=== PATIENT | male | born 1985 | race Two or more races ===

== ENCOUNTER 2016-09-28 20:49 | Emergency (ER) | payer OTHER ==
[~2016-09-28] VITALS: Ht 170.2 cm; Wt 80.7 kg
[2016-09-28] MEDS ORDERED: DIPH,PERTUSS(ACELL),TET VAC/PF 0.5 ML IM-VACC ONE ×2 (21:25→21:30)
[2016-09-28] MEDS ORDERED: CEFTRIAXONE PMX 1GM/50ML 50 ML ONE (21:26)
[2016-09-28] MEDS ORDERED: SODIUM CHLORIDE 0.9% 1,000ML IVBOLUS ONE (21:30)
[2016-09-28] MEDS ORDERED: SODIUM CHLORIDE FLUSH 10ML SYR IVF ONE (21:30)
[2016-09-28] MEDS ORDERED: CEFTRIAXONE PMX 1GM/50ML 50 ML IVPB ONE (21:30)
[2016-09-28 22:01] LABS: BLOOD UREA NITROGEN 12 mg/dL (7-18)
[2016-09-29 00:09] VITALS: BP 132/82
== END 2016-09-29 00:13 | disposition home or self-care (01) ==
LOC: ED 22:23
DX: L03.113 Cellulitis of right upper limb (principal); L03.123 Acute lymphangitis of right upper limb
CPT/HCPCS: 36415; 73090; 80048; 82040; 83605; 84145; 85025; 87040; 90471; 90715; 96365; 99285; J0696; J7030